=== PATIENT | female | born 1980 | race Caucasian/White ===

== ENCOUNTER 2017-11-04 06:10 | Day surgery (SDC) | payer BC ==
--- NOTE | 2017-11-01 19:30 | Pre-op HX & Phy Repo 2 SIG ---
DATE OF ADMISSION: 11/04/2017 DATE OF SURGERY: 11/04/2017. PREOPERATIVE DIAGNOSIS: Retinal detachment, right eye. BRIEF NOTE: This is a first [place] admission for this patient who is a very nice 37-year-old lady, who complained of blurred vision and field loss in the right eye. On examination, she was found to have a retinal detachment, acute over chronic with the macula off. She is admitted for repair. PAST OCULAR HISTORY: Remarkable for myopia, controlled with contact lenses and glasses. She states that for a week or more she was noted blurring in the right eye and a shadow. MEDICAL HISTORY: Unremarkable. She had history of bone spurs that were operated earlier this year. SOCIAL HISTORY: She does not smoke or drink. ALLERGIES: She has an allergy to sulfa. PHYSICAL EXAMINATION: HEENT: Best vision at the time of admission was 20/60 in the right eye and 20/20 in the left. There was some superior nasal visual field loss on the right. The left was clear. The anterior segment showed iris strands bilaterally. There were no adhesions. Funduscopic examination of the right eye showed a fairly bullous retinal detachment, mainly inferiorly extending from the 4 o'clock position to the 10 o'clock position. The inferior retina was significantly thinned. There was a demarcation line extending from the at 10 o'clock to near the equator. 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 The macula was detached. The left fundus showed a myopic eye without other peripheral retinal lesions. General physical examination will be done by Dr. Woods. ASSESSMENT: Macula off retinal detachment, right eye. PLAN: The plan is to perform a pars plana vitrectomy with scleral buckling and cryopexy with gas injection on the right. The risks and benefits of surgery have been gone over with the patient including potential infection, hemorrhage, glaucoma, cataract formation, the need for additional surgery, remote possibility of loss of the eye and the risk of anesthesia was discussed. The patient understands and consents to the surgery, which will be performed on Saturday. Jarrell Culver M.D. DR: TROY JOB#: [id number] CC:
[2017-11-04] VITALS (9 sets, daily range): BP systolic 115–132; BP diastolic 67–87
[~2017-11-04] VITALS: Ht 157.5 cm; Wt 69.4 kg
[~2017-11-04 06:10] MED LIST: Cyclopentolate 1% Opth Sol 2ml ONE; Flurbiprofen 0.03% Opth Sol 2.5ml ONE; Phenylephrine 2.5% Op 2ml Soln ONE; Vigamox Opth Soln 3ml ONE
[2017-11-04] MEDS: Cyclopentolate 1% Opth Sol 2ml RIGHT EYE SCH ×3 (06:32→06:51)
[2017-11-04] MEDS: Vigamox Opth Soln 3ml RIGHT EYE SCH ×3 (06:32→06:52)
[2017-11-04] MEDS: Phenylephrine 2.5% Op 2ml Soln RIGHT EYE SCH ×3 (06:32→06:51)
[2017-11-04] MEDS: Flurbiprofen 0.03% Opth Sol 2.5ml RIGHT EYE SCH ×3 (06:32→06:52)
[2017-11-04] MEDS ORDERED: PAROXETINE HCL20 MG PO (06:44)
[2017-11-04] MEDS ORDERED: JUNEL1 EAC1 PO (06:44)
[2017-11-04 06:57] LABS: BASOPHILS % (AUTO) 0.9 % (0.0-2.0); EOSINOPHILS % (AUTO) 1.3 % (0.0-3.0); HEMATOCRIT 39.7 % (37.0-47.0); HEMOGLOBIN 13.6 G/DL (12.0-16.0); LYMPHOCYTES % (AUTO) 27.3 % (20.0-45.0); MEAN CORPUSCULAR VOLUME 87 FL (80-99); MONOCYTES % (AUTO) 7.4 % (1.0-10.0); NEUTROPHILS % (AUTO) 63.2 % (45.0-75.0); PLATELET COUNT 395 K/UL (150-450); RED BLOOD COUNT 4.54 M/UL (4.20-5.40); RED CELL DISTRIBUTION WIDTH 11.4 % (11.6-14.8); WHITE BLOOD COUNT 11.1 K/UL (4.8-10.8)
[2017-11-04] MEDS ORDERED: Pred Forte 1% Opth Susp 1ml RIGHT EYE ONE (07:00)
[2017-11-04 07:02] LABS: ANION GAP 7 mmol/L (5-15); BLOOD UREA NITROGEN 13 mg/dL (7-18); CALCIUM 8.9 MG/DL (8.5-10.1); CARBON DIOXIDE 24 MMOL/L (21-32); CHLORIDE 105 MMOL/L (98-107); CREATININE 0.8 MG/DL (0.55-1.30); POTASSIUM 4.1 MMOL/L (3.5-5.1); SODIUM 136 MMOL/L (136-145)
[2017-11-04] MEDS ORDERED: Propofol 200mg/20ml IV ONE (07:13)
[2017-11-04] MEDS ORDERED: Midazolam 2mg/2ml Inj ONE (07:13)
[2017-11-04] MEDS ORDERED: fentaNYL 100 mcg/2 mL IV ONE (07:13)
[2017-11-04] MEDS ORDERED: Lidocaine 2% MPF 5ml Vial INJ ONE (07:14)
[2017-11-04] MEDS ORDERED: EPINEPHrine 1mg/1ml Amp ONE (07:14)
[2017-11-04] MEDS ORDERED: Maxitrol Opth Oint 3.5gm ONE (07:14)
[2017-11-04] MEDS ORDERED: Lidocaine 1% MPF 10mg/ml 5ml ONE (07:14)
[2017-11-04] MEDS ORDERED: Kenalog-40 1ml Vial ONE (07:14)
[2017-11-04] MEDS ORDERED: BSS 15ml BTL ONE (07:15)
[2017-11-04] MEDS ORDERED: Kenalog-10 5ml Inj ONE (07:15)
[2017-11-04] MEDS ORDERED: Neosporin Oph Soln 5ml Btl ONE (07:15)
[2017-11-04] MEDS ORDERED: Povidone-Iodine 5% opth solution ONE (07:15)
[2017-11-04] MEDS ORDERED: BSS 500ml btl ONE (07:15)
[2017-11-04] MEDS ORDERED: Dexamethasone 4mg/ml vial ONE (07:15)
[2017-11-04] MEDS ORDERED: Tetracaine 0.5% Opth 4ml Soln ONE (07:15)
[2017-11-04] MEDS ORDERED: Triamcinolone 40mg/ml PF Vial ONE (07:16)
[2017-11-04] MEDS ORDERED: Sodium Hyaluronate 10 mg/ml 0.85ml ONE (07:16)
[2017-11-04] MEDS ORDERED: Bupivacaine 0.75% 30ml vial INJ ONE (07:16)
--- NOTE | 2017-11-04 07:25 | Pre-Procedure Note/Attestation ---
Pre-Procedure Note/Attestation Complete Prior to Procedure Planned Procedure: right Procedure Narrative: PPV, scleral buckle, endolaser, cryopexy, gas-fluid exchange Right eye Indications for Procedure Pre-Operative Diagnosis: Retinal detachment Right eye Attestation I attest that I discussed the nature of the procedure; its benefits; risks and complications; and alternatives (and the risks and benefits of such alternatives ), prior to the procedure, with the patient (or the patient's legal ambulatory service representative). I attest that, if there was a reasonable possibility of needing a blood transfusion, the patient (or the patient's legal ambulatory service representative) was given the [facility] standardized written summary, pursuant to the Jenaro [place] Blood Safety Act ([place] Health and Safety Code # 1645, as amended). I attest that I re-evaluated the patient just prior to the surgery and that there has been no change in the patient's H&P, except as documented below: BOYD HERNANDEZ Nov 04, 2017 07:25
[2017-11-04] MEDS ORDERED: LR 1000ml ONE (07:30)
[2017-11-04] MEDS ORDERED: Ketorolac 30mg Inj ONE (07:30)
[2017-11-04] MEDS ORDERED: Sterile Water Irrig 1000ml IRRIG ONE (07:30)
[2017-11-04] MEDS ORDERED: NS Irrig 1000ml ONE (07:30)
[2017-11-04] MEDS ORDERED: Norco 5mg/325mg tab ORAL PRN (07:30)
[2017-11-04] MEDS ORDERED: LR 1000ml 1,000 ML IVLG SCH (08:27)
--- NOTE | 2017-11-04 08:27 | Anethesia Preoperative Eval ---
Anesthesia Pre-op PMH/ROS General Date of Evaluation: Nov 04, 2017 Time of Evaluation: 07:20 Anesthesiologist: Lexy ASA Score: ASA 2 Mallampati Score Class I : Soft palate, uvula, fauces, pillars visible Class II: Soft palate, uvula, fauces visible Class III: Soft palate, base of uvula visible Class IV: Only hard plate visible Mallampati Classification: Class II Surgeon: Palomo Diagnosis: R eye retinal detouchment Surgical Procedure: R eye PPV Anesthesia History: none Family History: no anesthesia problems Allergies: Coded Allergies: SULFA (SULFONAMIDE ANTIBIOTICS) (Verified Allergy, Unknown, 11/01/17) Medications: see eMAR Past Medical History Cardiovascular: Denies: HTN, CAD, [place], valve dz, arrhythmia, other Pulmonary: Denies: asthma, COPD, TABITHA, other Gastrointestinal/Genitourinary: Reports: GERD - mild; Denies: CRI, ESRD, other Neurologic/Psychiatric: Reports: depression/anxiety; Denies: dementia, CVA, TIA, other Endocrine: Denies: DM, hypothyroidism, steroids, other HEENT: Denies: cataract (L), cataract (R), glaucoma, NOATAK (L), NOATAK (R), other Hematology/Immune: Denies: anemia, DVT, bleeding disorder, other Musculoskeletal/Integumentary: Denies: OA, RA, DJD, DDD, edema, other PMH Narrative: as above PSxH Narrative: L foot Sx Anesthesia Pre-op Phys. Exam Physician Exam Last Vital Signs Date Time Temp Pulse Resp B/P (MAP) Pulse Ox O2 Delivery O2 Flow Rate FiO2 11/04/17 06:39 97.0 81 18 124/79 96 Room Air 97.0 Constitutional: NAD Neurologic: CN 2-12 intact Cardiovascular: RRR, no M/R/G Respiratory: CTA Gastrointestinal: S/NT/ND Airway Exam Mallampati Score: Class II MO: full Neck: short ROM: full Teeth: intact Dentures: no upper, no lower Anesthesia Pre-op A/P Labs Hematology Test 11/04/17 06:45 White Blood Count 11.1 K/UL (4.8-10.8) H Red Blood Count 4.54 M/UL (4.20-5.40) Hemoglobin 13.6 G/DL (12.0-16.0) Hematocrit 39.7 % (37.0-47.0) Mean Corpuscular Volume 87 FL (80-99) Mean Corpuscular Hemoglobin 29.9 PG (27.0-31.0) Mean Corpuscular Hemoglobin Concent 34.3 G/DL (32.0-36.0) Red Cell Distribution Width 11.4 % (11.6-14.8) L Platelet Count 395 K/UL (150-450) Mean Platelet Volume 6.8 FL (6.5-10.1) Neutrophils (%) (Auto) 63.2 % (45.0-75.0) Lymphocytes (%) (Auto) 27.3 % (20.0-45.0) Monocytes (%) (Auto) 7.4 % (1.0-10.0) Eosinophils (%) (Auto) 1.3 % (0.0-3.0) Basophils (%) (Auto) 0.9 % (0.0-2.0) Chemistry Test 11/04/17 06:45 Sodium Level 136 MMOL/L (136-145) Potassium Level 4.1 MMOL/L (3.5-5.1) Chloride Level 105 MMOL/L (98-107) Carbon Dioxide Level 24 MMOL/L (21-32) Anion Gap 7 mmol/L (5-15) Blood Urea Nitrogen 13 mg/dL (7-18) Creatinine 0.8 MG/DL (0.55-1.30) Estimat Glomerular Filtration Rate > 60 mL/min (>60) Glucose Level 102 MG/DL (74-106) Calcium Level 8.9 MG/DL (8.5-10.1) Urine Test Test 11/04/17 06:20 Urine HCG, Qualitative Negative (NEGATIVE) Risk Assessment & Plan Assessment: ASA 2 Plan: GA with LMA PONV prevention Status Change Before Surgery: No Pre-Antibiotics Drug: none Antoni Pugh MD Nov 04, 2017 08:27
[2017-11-04] MEDS ORDERED: DiphenhydrAMINE 50mg/ml Inj IVP PRN (08:30)
[2017-11-04] MEDS ORDERED: Meperidine 50mg/ml Inj(FOR RIGORS ONLY) IV PRN (08:30)
[2017-11-04] MEDS ORDERED: Midazolam 2mg/2ml Inj IVP PRN (08:30)
[2017-11-04] MEDS ORDERED: Metoclopramide 10mg/2ml Inj IVP PRN (08:30)
[2017-11-04] MEDS ORDERED: Pred Forte 1% Opth Susp 1ml ONE (08:38)
--- NOTE | 2017-11-04 09:47 | Brief Operative Note ---
Immediate Post Operative Note Operative Note Chief Complaint: Blurred central vision plus field loss Right eye Pre-op Diagnosis: Retinal detachment Right eye Procedure: PPV, Scleral buckle (240 band plus 70 sleeve), cryopexy (5 spots), gas-fluid exchange (24% SF-6 Right eye Post-op Diagnosis: same as pre-op Surgeon: enrique Anesthesiologist: Lexy Anesthesia: general Specimen: none Complications: none Condition: stable Fluids: Per Aneshthesia Estimated Blood Loss: none Drains: none Implant(s) used?: Yes BOYD HERNANDEZ Nov 04, 2017 09:47
--- NOTE | 2017-11-04 09:54 | Immediate Post-Op Evaluation ---
Immediate Post-Op Evalulation Immediate Post-Op Evalulation Procedure: R eye PPV scleral buckle fluid to gas exchange Date of Evaluation: Nov 04, 2017 Time of Evaluation: 09:53 IV Fluids: 1000 Blood Products: none Estimated Blood Loss: min Urinary Output: none Blood Pressure Systolic: 116 Blood Pressure Diastolic: 72 Pulse Rate: 86 Respiratory Rate: 22 O2 Sat by Pulse Oximetry: 99 Temperature (Fahrenheit): 97.8 Pain Score (1-10): 1 Nausea: No Vomiting: No Complications none Patient Status: reacts, patent, none Hydration Status: adequate Antoni Pugh MD Nov 04, 2017 09:54
--- NOTE | 2017-11-04 10:38 | 48 Hour Post Anesthesia Eval ---
Post Anesthesia Evaluation Procedure: R eye PPV scleral buckle fluid to gas exchange Date of Evaluation: Nov 04, 2017 Time of Evaluation: 10:37 Blood Pressure Systolic: 126 0: 74 Pulse Rate: 82 Respiratory Rate: 20 Temperature (Fahrenheit): 97.6 O2 Sat by Pulse Oximetry: 98 Airway: patent Nausea: No Vomiting: No Pain Intensity: 1 Hydration Status: adequate Cardiopulmonary Status: stable Mental Status/LOC: patient returned to baseline Follow-up Care/Observations: none Post-Anesthesia Complications: none Follow-up care needed: ready to discharge Antoni Pugh MD Nov 04, 2017 10:38
--- NOTE | 2017-11-04 10:45 | Pre-op HX & Phy Repo 2 SIG ---
DATE OF ADMISSION: 11/04/2017 REASON FOR EVALUATION: I was asked by Dr. Jarrell Culver to see this 37-year-old female, who is going for elective surgery on the right eye. The patient has retinal detachment of the right eye. Please see full Ophthalmology History and Physical by Dr. Jarrell Culver. The patient was evaluated. Chart was reviewed. PAST MEDICAL HISTORY AND REVIEW OF SYSTEMS: Remarkable for no history of chest pain, palpitation, or heart attack. Denies history of hypertension or diabetes. No history of renal failure or anemia. No history of heartburn or peptic ulcer disease. No GI bleeding. The patient has anxiety and depression. PAST SURGICAL HISTORY: Left foot spur. FAMILY HISTORY: Father with diabetes and non-Hodgkin lymphoma. Mother has history of breast cancer who is alive. ALLERGIES: To sulfa drug, developed hives. Milk and milk products intolerance. PRESENT MEDICATIONS: Include contraceptive. SOCIAL HISTORY: Denies tobacco use. Occasional alcohol. Occasional marijuana. PHYSICAL EXAMINATION: GENERAL: The patient is alert, well-developed, well-nourished female, in her 70s. VITAL SIGNS: Blood pressure 124/77, temperature 97, pulse 81, O2 saturation 96% on room air. SKIN: Clear and warm. No rashes. No ulcers. HEENT: The head is normocephalic, atraumatic. Ears, clear. Eyes, per Dr. Jarrell Culver. Mouth, clear and moist, no dentures, no implant. NECK: Supple. No jugular venous distention. Carotids artery +2. Trachea midline. CHEST: No deformity. No asymmetry. LUNGS: Clear to auscultation and percussion. No rales or rhonchi. HEART: Normal sinus rhythm, 81 per minute, no murmur. No S3 or S4. ABDOMEN: Soft, benign. Liver and spleen not enlarged. No rebound. EXTREMITIES: No edema. No varicose veins. No calf tenderness. GENITOURINARY TRACT: No dysuria. No CVA tenderness. The patient did not eat or drink since 10:30 p.m. Laboratory work pending. IMPRESSION: 1. Retinal detachment, right eye. 2. Anxiety, depression. PLAN: Pars plana vitrectomy, 23G of right eye, scleral buckle per Dr. Jarrell Culver. CONCLUSION: The patient's vital signs stable. The patient did not eat or drink from last night. The patient's condition optimized for surgery. Thank you very much, Dr. Culver, for privilege to participate in presurgical care of this interesting patient. Cuca Woods M.D. DR: Steve JOB#: [id number] CC:
--- NOTE | 2017-11-04 12:15 | Operative Note - Dictated ---
DATE OF OPERATION: 11/04/2017 PREOPERATIVE DIAGNOSIS: Retinal detachment, right eye. POSTOPERATIVE DIAGNOSIS: Retinal detachment, right eye. PROCEDURES PERFORMED: 1. Pars plana vitrectomy. 2. Scleral buckle. 3. Peripheral cryopexy. 4. Gas-fluid exchange all in the right eye. SURGEON: Jarrell Culver M.D. CLIENT SUPPORT REPRESENTATIVE: None. ANESTHESIA: LMA General. ANESTHESIOLOGIST: Antoni Pugh M.D. JUSTIFICATION FOR SURGERY: This 37-year-old lady noted approximately one week ago central visual blurring and loss of peripheral field. She was found to have a retinal detachment in the right eye. BRIEF NOTE: The patient was brought to the operating room, placed on OR table in supine position. After a time-out was performed and agreed upon by the staff, general LMA anesthesia was induced by Dr. Pugh. Retrobulbar and Van Lint blocks were given in standard way to limit intraoperative anesthesia and postoperative pain. She was then prepped and draped in normal manner. A lid speculum inserted into the right eye. A 360-degree peritomy was then cut with relaxation incisions at 3 and 9. The muscles were isolated and turned on white and black ties. The quadrants were explored and found to be without scleral thinning. Scleral depression was done and a localized area containing a retinal hole was found right at the 9:30 position. This was marked on the sclera. Examination of the remainder of the periphery revealed a pigmented spot at the 3 o'clock position, but no definite retinal breaks. The detachment was bullous in nature and appeared chronic, extending from the 4 o'clock position to the 10 o'clock position where there was a subretinal demarcation line. Gentle cryopexy was then used to treat the area of the retinal break placing five spots. A single spot was placed beneath the pigmented lesion at the 3 o'clock position. No other lesions were seen. The sutures were then placed for a scleral buckle with mattress sutures rather being placed in each quadrant using 5-0 nylon. The sutures were placed 3.5 mm apart. In the superonasal quadrant, it was ensured that the marked sclera was encompassed on the crest of the buckle. Once these had been placed, 240 band was selected and placed around the eye beneath the mattress sutures and the rectus muscle and secured upon itself with a 70 sleeve in the superonasal quadrant. The buckle was tightened to form a slightly elevated buckling effect. The ends were left long for potential further adjustment. All sutures were tied and rotated posteriorly. At this juncture, preparation was made for a vitrectomy. Using a 23-gauge trocar system, cannulas were placed in all except infranasal quadrant. Infusion secured inferotemporally. Vitrectomy was begun posterior to the lens taking care to avoid contact. A central core vitrectomy was done followed by peripheral vitrectomy leaving a small vitreous skirt. The posterior hyaloid had previously elevated and this was removed. The vitreous over the small round hole at the 9:30 position was removed and using gentle suction roughly 80% of the subretinal fluid was drained through this break. An air-fluid exchange was then performed migrating remaining fluid posteriorly. A gas-gas exchange was then performed leaving roughly 25% of the fluid in the eye to prevent the development of wet folds. A 24% SF6 was used. At this juncture, the cannulas were removed and the sclerotomy was closed with 8-0 Vicryl suture. Additional anesthetic solution was placed in the subconjunctival space before conjunctiva and Tenon's capsule were pulled up and secured at 6 and 9 with two interrupted sutures of 6-0 plain catgut, knots buried. Subconjunctival Decadron and gentamicin were then injected inferiorly and atropine drops, prednisolone drops, Vigamox drops, and Maxitrol ointment were instilled. The eye was patched and shielded and the patient taken to recovery after smooth extubation in excellent condition. There were no complications. She is to be taken to recovery to be placed in a face-down position for at least one hour and the left side down position overnight. There were no complications. Jarrell Culver M.D. DR: TUSHAR JOB#: [id number] CC: Jarrell Culver M.D.; Fax#: [phone]
== END 2017-11-04 11:45 | disposition home or self-care (01) ==
LOC: SUR 06:10
DX: H33.21 Serous retinal detachment, right eye (principal); F41.9 Anxiety disorder, unspecified; F32.9 Major depressive disorder, single episode, unspecified; Z88.2 Allergy status to sulfonamides; Z91.011 Allergy to milk products; Z83.3 Family history of diabetes mellitus; Z80.3 Family history of malignant neoplasm of breast; K21.9 Gastro-esophageal reflux disease without esophagitis
CPT/HCPCS: 36415; 67108; 80048; 81025; 85025; J0171; J1100; J1885; J2250; J2405; J2704; J3010; J3470; J3490; J7120; 94003; 94150; J3300

== ENCOUNTER 2017-11-25 07:11 | Day surgery (SDC) | payer BC ==
[~2017-11-25] VITALS: Ht 157.5 cm; Wt 68.9 kg
[2017-11-25] VITALS (10 sets, daily range): BP systolic 116–139; BP diastolic 78–89
[~2017-11-25 07:11] MED LIST changes: -Cyclopentolate 1% Opth Sol 2ml ONE; -Flurbiprofen 0.03% Opth Sol 2.5ml ONE; +JUNEL1 EAC1 PO; +PAROXETINE HCL20 MG PO; -Phenylephrine 2.5% Op 2ml Soln ONE; +Pred Forte 1% Opth Susp 1ml RIGHT EYE ONE; -Vigamox Opth Soln 3ml ONE
[2017-11-25] MEDS: Vigamox Opth Soln 3ml RIGHT EYE SCH ×3 (07:40→08:02)
[2017-11-25] MEDS: Phenylephrine 2.5% Op 2ml Soln RIGHT EYE SCH ×3 (07:40→08:02)
[2017-11-25] MEDS: Cyclopentolate 1% Opth Sol 2ml RIGHT EYE SCH ×3 (07:40→08:02)
[2017-11-25] MEDS: Flurbiprofen 0.03% Opth Sol 2.5ml RIGHT EYE SCH ×3 (07:40→08:01)
[2017-11-25] MEDS ORDERED: Kenalog-40 1ml Vial ONE (07:45)
[2017-11-25] MEDS ORDERED: Lidocaine 2% MPF 5ml Vial INJ ONE (07:45)
[2017-11-25] MEDS ORDERED: EPINEPHrine 1mg/1ml Amp ONE (07:45)
[2017-11-25] MEDS ORDERED: Maxitrol Opth Oint 3.5gm ONE (07:46)
[2017-11-25] MEDS ORDERED: Kenalog-10 5ml Inj ONE (07:46)
[2017-11-25] MEDS ORDERED: Dexamethasone 4mg/ml vial ONE (07:46)
[2017-11-25] MEDS ORDERED: BSS 500ml btl ONE (07:46)
[2017-11-25] MEDS ORDERED: Pred Forte 1% Opth Susp 1ml ONE (07:46)
[2017-11-25] MEDS ORDERED: BSS 15ml BTL ONE (07:47)
[2017-11-25] MEDS ORDERED: Povidone-Iodine 5% opth solution ONE (07:47)
[2017-11-25] MEDS ORDERED: Bupivacaine 0.75% 30ml vial INJ ONE (07:48)
[2017-11-25] MEDS ORDERED: Sodium Hyaluronate 10 mg/ml 0.85ml ONE (07:48)
[2017-11-25] MEDS ORDERED: Triamcinolone 40mg/ml PF Vial ONE (07:48)
[2017-11-25] MEDS ORDERED: Tetracaine 0.5% Opth 4ml Soln ONE (07:48)
--- NOTE | 2017-11-25 08:53 | Pre-Procedure Note/Attestation ---
Pre-Procedure Note/Attestation Complete Prior to Procedure Planned Procedure: right Procedure Narrative: PPV, endolaser, gas-fluid exchange Right eye Indications for Procedure Pre-Operative Diagnosis: Recurrent subretinal fluid Right eye Attestation I attest that I discussed the nature of the procedure; its benefits; risks and complications; and alternatives (and the risks and benefits of such alternatives ), prior to the procedure, with the patient (or the patient's legal pharmaceutical specialty representative). I attest that, if there was a reasonable possibility of needing a blood transfusion, the patient (or the patient's legal pharmaceutical specialty representative) was given the [facility] standardized written summary, pursuant to the Jenaro Ariane Blood Safety Act ([place] Health and Safety Code # 1645, as amended). I attest that I re-evaluated the patient just prior to the surgery and that there has been no change in the patient's H&P, except as documented below: BOYD HERNANDEZ Nov 25, 2017 08:53
[2017-11-25] MEDS ORDERED: Sterile Water Irrig 1000ml IRRIG ONE (09:00)
[2017-11-25] MEDS ORDERED: LR 1000ml ONE (09:00)
[2017-11-25] MEDS ORDERED: NS Irrig 1000ml ONE (09:00)
[2017-11-25] MEDS ORDERED: Propofol 200mg/20ml IV ONE (09:05)
[2017-11-25] MEDS ORDERED: Sodium Chloride 10ml vial INJ ONE (09:05)
[2017-11-25] MEDS ORDERED: Midazolam 2mg/2ml Inj ONE (09:05)
[2017-11-25] MEDS ORDERED: LR 1000ml 1,000 ML IVLG SCH (09:35)
--- NOTE | 2017-11-25 09:40 | Anethesia Preoperative Eval ---
Anesthesia Pre-op PMH/ROS General Date of Evaluation: Nov 25, 2017 Time of Evaluation: 09:00 Anesthesiologist: Bobby ASA Score: ASA 1 Mallampati Score Class I : Soft palate, uvula, fauces, pillars visible Class II: Soft palate, uvula, fauces visible Class III: Soft palate, base of uvula visible Class IV: Only hard plate visible Mallampati Classification: Class II Surgeon: Palomo Diagnosis: Retinal tear right eye Surgical Procedure: Vitrectomy, endo laser, gas/fluid exchange Allergies: Coded Allergies: SULFA (SULFONAMIDE ANTIBIOTICS) (Verified Allergy, Intermediate, 11/25/17) REDNESS, SWELLING Medications: see eMAR Past Medical History Cardiovascular: Denies: HTN, CAD, [place], valve dz, arrhythmia, other Pulmonary: Denies: asthma, COPD, TABITHA, other Gastrointestinal/Genitourinary: Denies: GERD, CRI, ESRD, other Neurologic/Psychiatric: Denies: dementia, CVA, depression/anxiety, TIA, other Endocrine: Denies: DM, hypothyroidism, steroids, other HEENT: Denies: cataract (L), cataract (R), glaucoma, MILLE LACS (L), MILLE LACS (R), other Hematology/Immune: Denies: anemia, DVT, bleeding disorder, other Musculoskeletal/Integumentary: Denies: OA, RA, DJD, DDD, edema, other PMH Narrative: Denies significant PMH PSxH Narrative: Vitrectomy right eye, foot surgery Anesthesia Pre-op Phys. Exam Physician Exam Last Vital Signs Date Time Temp Pulse Resp B/P (MAP) Pulse Ox O2 Delivery O2 Flow Rate FiO2 11/25/17 07:45 Room Air 11/25/17 07:44 98.0 81 18 116/79 (91) 97 98.0 Constitutional: NAD Neurologic: CN 2-12 intact Cardiovascular: RRR, no M/R/G Respiratory: CTA Gastrointestinal: S/NT/ND Airway Exam Mallampati Score: Class II MO: full ROM: full Teeth: intact Anesthesia Pre-op A/P Labs Wnl Urine Test Test 11/25/17 07:20 Urine HCG, Qualitative Negative (NEGATIVE) Studies Pre-op Studies: EKG - NSR Risk Assessment & Plan Assessment: Healthy female for retinal surgery Plan: MAC Status Change Before Surgery: No Pre-Antibiotics Drug: None Jenaro Rosales MD Nov 25, 2017 09:40
--- NOTE | 2017-11-25 09:41 | Immediate Post-Op Evaluation ---
Immediate Post-Op Evalulation Immediate Post-Op Evalulation Procedure: Vitrectomy, endolaser, gas/fluid exchange right eye Date of Evaluation: Nov 25, 2017 Time of Evaluation: 10:50 IV Fluids: 450 Blood Pressure Systolic: 122 Blood Pressure Diastolic: 88 Pulse Rate: 75 Respiratory Rate: 22 O2 Sat by Pulse Oximetry: 100 Temperature (Fahrenheit): 98.0 Pain Score (1-10): 0 Nausea: No Vomiting: No Complications No complication Patient Status: awake, patent, none Hydration Status: adequate Drug: None Jenaro Rosales MD Nov 25, 2017 09:41
[2017-11-25] MEDS ORDERED: DiphenhydrAMINE 50mg/ml Inj IVP PRN (09:45)
[2017-11-25] MEDS ORDERED: fentaNYL 100 mcg/2 mL IV PRN (09:45)
[2017-11-25] MEDS ORDERED: Midazolam 2mg/2ml Inj IVP PRN (09:45)
--- NOTE | 2017-11-25 10:55 | Brief Operative Note ---
Immediate Post Operative Note Operative Note Chief Complaint: Blurred vision with blind spot Pre-op Diagnosis: Recurrent subretinal fluid Right eye Procedure: PPV, perfluron placement and removal, endodrainage, endolaser 1360 spots, gas fluid exchange 14% C3F8 OD Post-op Diagnosis: same as pre-op Surgeon: enrique Lead Qa Analyst: none Anesthesiologist: Lawrence Anesthesia: MAC Specimen: none Complications: none Condition: stable Fluids: None Estimated Blood Loss: none Drains: none Implant(s) used?: No BOYD HERNANDEZ Nov 25, 2017 10:54
[2017-11-25] MEDS ORDERED: acetaZOLAMIDE 500mg Sequel ORAL SCH (11:00)
--- NOTE | 2017-11-25 12:15 | Pre-op HX & Phy Repo 2 SIG ---
DATE OF SURGERY: November 24, 2017. PREOPERATIVE DIAGNOSIS: Recurrent retinal detachment, right eye. BRIEF NOTE: This is the second [place] admission for this patient who is a very nice 37-year-old lady with a retinal detachment, recurrent in the right eye. She had surgery two weeks ago and initially did well, but started to develop recurrent subretinal fluid, felt secondary to failure of edge of the small of break temporally to seal. She is admitted for endo drainage and additional laser. PAST MEDICAL HISTORY: As delineated previously. She has no other medical problems. ALLERGIES: She has an allergy to sulfa. PHYSICAL EXAMINATION: Best vision at the time of the visit was counting fingers at 3 feet in the right eye, 20/20 on the left. The pressure on the right was 18. There was still superior field defect on the right. Iris strands were noted bilaterally. Fundus examination of the right eye showed recurrence of the subretinal fluid although retinal tear appeared well sealed under cryo. There was a possibility of a small edge of the tear elevated and allowing fluid to recover recur. A scleral buckle was noted 360 degrees and appeared fine. The superior retina was attached. Left fundus was benign. General physical examination was done previously by Dr. Woods. ASSESSMENT: Recurrent detachment, right eye. PLAN: The plan is to perform a pars plana vitrectomy with endo drainage either through a posterior retinotomy or using perfluorocarbon through any existing anterior break. Endolaser will be done and a gas bubble will be reinstituted. The risks and benefits surgery gone over the patient including potential for infection, cataract formation, the unlikely possibility of additional surgery and the remote possibility of loss of the eye. The risk of anesthesia was discussed. The patient understands and consents to the surgery, which will be performed Saturday. Jarrell Culver M.D. DR: Shad JOB#: [id number] CC:
[2017-11-25] MEDS ORDERED: Norco 5mg/325mg tab ORAL PRN (14:53)
--- NOTE | 2017-11-25 19:45 | Operative Note - Dictated ---
DATE OF OPERATION: 11/25/2017 PREOPERATIVE DIAGNOSIS: Recurrent retinal detachment, right eye. POSTOPERATIVE DIAGNOSIS: Recurrent retinal detachment, right eye. PROCEDURES: 1. Pars plana vitrectomy. 2. Placement and removal of Perfluoron fluid. 3. Posterior retinotomy and drainage. 4. Endolaser. 5. Gas-fluid exchange, right eye. SURGEON: Jarrell Culver M.D. INTERVENTIONAL SALE CONSULTANT: None. ANESTHESIA: Local sedation with Dr. Rosales. JUSTIFICATION FOR SURGERY: This 37-year-old lady underwent a retinal detachment procedure two weeks ago. Initially she did well, but there was recurrence of fluid suspected from the edge of the previous break. BRIEF NOTE: The patient was brought to the operative room and was placed on OR table in supine position. After time-out was performed and agreed upon by the staff, and initial monitoring secured by Dr. Rosales, retrobulbar and Van Lint blocks were given in standard way. When the blocks had taken effect, she was prepped and draped in normal manner. A lid speculum was inserted into the right eye. Using a 23-gauge trocar system, cannulas were placed in all except infranasal quadrant. Infusion secured inferotemporally. Additional vitrectomy was completed peripherally leaving a small vitreous skirt. Scleral depression was done, no definite breaks were found, but there was suspicion of a small opening in the inferior edge of the previous tear and a suspicious area inferonasally that did not show a definite break. Perfluoron was introduced into the eye forcing the fluid anteriorly. Despite careful scleral depression, no stream of exit of subretinal fluid was seen. The Perfluoron was then removed and it was elected to perform a posterior retinotomy. A site was selected in elevated retina just inferior and slightly nasal to the optic nerve. Cautery was used to pre-treat the area and intraocular forceps were used to gently form a very tiny opening. An air-fluid exchange was then performed with suction with the cannulated extrusion needle through the break. Thickened subretinal fluid was noted to exit and the retina flattened nicely. With the retina now flattened, the Endolaser was brought into the eye and 2 rows of laser were placed around the previous cryo-spot encompassing what was suspected to be the remaining open break. Suspicious areas inferonasally were also treated as well as an area adjacent to previous demarcation line supratemporally. Scleral depression was done and no additional or suspected openings were seen. A total of 1360 lesions were applied. At this juncture, a gas-gas exchange was performed using a 14% mixture of C3F8. The superior cannulas were removed from the eye and each sclerotomy was closed with a single throw of 8-0 Vicryl. The infusion cannula was removed and this sclerotomy was also closed similarly. The gas remaining was injected 4 mm from the limbus temporally through a 30-gauge needle to bring the eye to normal tension. Subconjunctival Decadron and gentamicin were then injected and Maxitrol and atropine ointments were instilled. The eye was patched and shielded and the patient taken to recovery in excellent condition to be placed in a face-down position overnight. There were no complications. Jarrell Culver M.D. DR: TROY JOB#: [id number] CC:
== END 2017-11-25 12:20 | disposition home or self-care (01) ==
LOC: SUR 07:11
DX: H33.001 Unspecified retinal detachment with retinal break, right eye (principal)
CPT/HCPCS: 67108; 81025; J0171; J1100; J2250; J2704; J3470; J3490; J7120; 94003; 94150; J3300